=== PATIENT | male | born 1950 | race African-American/Black ===

== ENCOUNTER → 2016-08-07 | Outpatient (CLI) | payer OTHER ==
[~2016-08-07] VITALS: Ht 177.8 cm; Wt 86.2 kg
[~2016-08-07] MED LIST: ATARAX,VISTARIL50 MG PO; CICLOPIROX30 GM TP; DROXIA400 MG PO; GLUCOPHAGE1000 MG PO; GLUCOTROL10 MG PO; HYDROCHLOROTHIA25 MG PO; KERYDIN10 ML TP; LANTUS 3 M100 UNITS1 SC; LATANOPROST2.5 ML BOTH EYES; LISINOPRIL40 MG PO; TRADJENTA5 MG PO; TRILIPIX135 MG PO; TRULICITY1.5 MG/0.5 SC
[2016-08-07 08:49] LABS: POINT-OF-CARE METER ID UU13113694
[2016-08-07 09:29] LABS: POINT-OF-CARE METER ID UU13113819
[2016-08-07 09:33] LABS: ANION GAP 8 MEQ/L (2-14); CHLORIDE 104 MEQ/L (99-109); POTASSIUM 4.5 MEQ/L (3.7-5.4); SAMPLE HEMOLYSIS CHECK 0; SAMPLE ICTERIC CHECK 0; SAMPLE LIPEMIA CHECK 0; SODIUM 138 MEQ/L (136-147)
[2016-08-07 09:38] LABS: GFR ESTIMATE (CALCULATED) > 59 mL/min/; GLUCOSE 167 mg/dL (70-99); UREA NITROGEN (BUN) 24 mg/dL (9-23)
== END | disposition home or self-care (01) ==
LOC: AMB 07:59
PROVIDERS: Internal Medicine
PROC: 0DJ08ZZ Inspection of Upper Intestinal Tract, Via Natural or Artificial Opening Endoscopic (ICD-10-PCS; principal; 2016-08-07)
DX: R22.1 Localized swelling, mass and lump, neck (principal); R10.9 Unspecified abdominal pain; I10 Essential (primary) hypertension; E11.9 Type 2 diabetes mellitus without complications; E78.5 Hyperlipidemia, unspecified; H54.8 Legal blindness, as defined in USA
CPT/HCPCS: 80048; 82948; B4087; J2250; J3010

== ENCOUNTER 2016-09-27 11:00 | Observation (INO) | payer OTHER ==
[~2016-09-27] VITALS: Ht 177.8 cm; Wt 86.0 kg
[2016-09-27 11:26] LABS: HEMATOCRIT 39.6 % (38.0-50.0); MCH 31.3 PG (29.0-34.0); MCHC 31.8 G/DL (30.0-36.0); MCV 98.5 FL (86-99); MEAN PLAT.VOLUME 10.3 uM^3 (9.0-12.4); PLATELET COUNT 352 K/uL (156-360); RBC DIS.WIDTH-CV 19.2 % (11.8-14.6); RBC DIS.WIDTH-SD 69.3 % (39-53); RED BLOOD COUNT 4.02 M/uL (4.00-5.50); WHITE BLOOD COUNT 11.2 K/uL (4.1-10.2)
[2016-09-27 11:58] LABS: ANION GAP 7 MEQ/L (2-14); CHLORIDE 103 MEQ/L (99-109); GFR ESTIMATE (CALCULATED) 56 mL/min/; GLUCOSE 187 mg/dL (70-99); POTASSIUM 4.1 MEQ/L (3.7-5.4); SAMPLE HEMOLYSIS CHECK 0; SAMPLE ICTERIC CHECK 0; SAMPLE LIPEMIA CHECK 0; SODIUM 138 MEQ/L (136-147); UREA NITROGEN (BUN) 20 mg/dL (9-23)
[2016-09-27 11:59] LABS: TROP-I INTERPRETATION NEGATIVE; TROPONIN-I < 0.01 ng/mL (0.0-0.30)
[2016-09-27] MEDS ORDERED: HYDREA500 MG PO (13:58)
[2016-09-27] MEDS ORDERED: PRINIVIL5 MG PO (13:59)
[2016-09-27] MEDS ORDERED: LOFIBRA,TRIGLI160 MG PO (13:59)
[2016-09-27] MEDS ORDERED: LUMIGAN 0.50 DROP/22 BOTH EYES (14:02)
[2016-09-27] MEDS ORDERED: COSOPT EYE DROPS5 ML BOTH EYES (14:03)
[2016-09-27] MEDS ORDERED: ALPHAGAN 0100 DROP/5 BOTH EYES (14:03)
[2016-09-27] MEDS ORDERED: ISOPTO CARPINE15 M2 RIGHT EYE (14:04)
[2016-09-27] MEDS ORDERED: PRED FORTE100 DROP/5 LEFT EYE (14:04)
[2016-09-27 15:10] VITALS: BP 149/81
[2016-09-27 17:08] LABS: POINT-OF-CARE METER ID UU13113700
[2016-09-27 17:48] VITALS: BP 117/68
[2016-09-27 17:55] VITALS: BP 114/61
[2016-09-27 18:00] LABS: TROP-I INTERPRETATION NEGATIVE; TROPONIN-I < 0.01 ng/mL (0.0-0.30)
[2016-09-27 20:00] VITALS: BP 102/52
[2016-09-27 21:35] LABS: POINT-OF-CARE METER ID UU13113700
[2016-09-27 23:37] LABS: TROP-I INTERPRETATION NEGATIVE; TROPONIN-I < 0.01 ng/mL (0.0-0.30)
[2016-09-27 23:54] LABS: POINT-OF-CARE METER ID UU13113700
[2016-09-28 00:02] VITALS: BP 108/55
[2016-09-28 04:03] VITALS: BP 105/52
[2016-09-28 06:02] LABS: HEMATOCRIT 37.7 % (38.0-50.0); MCH 30.6 PG (29.0-34.0); MCHC 31.3 G/DL (30.0-36.0); MCV 97.9 FL (86-99); MEAN PLAT.VOLUME 11.1 uM^3 (9.0-12.4); NRBC (%) 0.8 /100 WBC (0-0); PLATELET COUNT 365 K/uL (156-360); RBC DIS.WIDTH-CV 19.5 % (11.8-14.6); RED BLOOD COUNT 3.85 M/uL (4.00-5.50); WHITE BLOOD COUNT 9.1 K/uL (4.1-10.2)
[2016-09-28 06:23] LABS: ANION GAP 6 MEQ/L (2-14); CHLORIDE 105 MEQ/L (99-109); GFR ESTIMATE (CALCULATED) > 59 mL/min/; GLUCOSE 150 mg/dL (70-99); SAMPLE HEMOLYSIS CHECK 0; SAMPLE ICTERIC CHECK 0; SAMPLE LIPEMIA CHECK 0; SODIUM 138 MEQ/L (136-147); UREA NITROGEN (BUN) 15 mg/dL (9-23)
[2016-09-28 06:49] LABS: INTER. NORMALIZED RATIO 1.2; PROTHROMBIN TIME 12.3 (9.2-11.2)
[2016-09-28 07:33] VITALS: BP 117/67
[2016-09-28 07:36] LABS: Estimated Average Glucose 166 mg/dL (70-123); HEMOGLOBIN A1c (GLYCOHEMOGLOB) 7.4 % HGB (Below 5.7)
[2016-09-28] MEDS ORDERED: ATORVASTATIN CA40 MG PO (11:26)
[2016-09-28] MEDS ORDERED: ASPIR-LOW81 MG PO (11:26)
[2016-09-28 15:04] LABS: HDL CHOLESTEROL 22 MG/DL (Desirable>=40); LDL CHOLESTEROL 25 mg/dL (Desirable<100); NON-HDL CHOLESTEROL 64 mg/dL (Desirable<160); TOTAL CHOLESTEROL 86 mg/dL (Desirable<200); TRIGLYCERIDES 196 MG/DL (Normal: <150)
== END 2016-09-28 13:18 | disposition home or self-care (01) ==
LOC: EME 11:00 → EDOF 13:24 → 5WEST 13:24 → EDOF 13:54 → 5WEST 15:16
PROVIDERS: Physician Assistant; Student in an Organized Health Care Education/Training Program
DX: R07.89 Other chest pain (principal); R94.31 Abnormal electrocardiogram [ECG] [EKG]; N17.9 Acute kidney failure, unspecified; D72.829 Elevated white blood cell count, unspecified; I10 Essential (primary) hypertension; E11.9 Type 2 diabetes mellitus without complications; Z79.4 Long term (current) use of insulin; E78.5 Hyperlipidemia, unspecified; Z85.46 Personal history of malignant neoplasm of prostate; E55.9 Vitamin D deficiency, unspecified; H40.9 Unspecified glaucoma; Z87.891 Personal history of nicotine dependence
CPT/HCPCS: 71020; 80048; 80061; 82948; 83036; 84484; 85027; 85610; 93005; 99281; 99285; G0378; J1644; J1815; J2270; J7030

== ENCOUNTER 2016-09-30 00:03 | Emergency (ER) | payer OTHER ==
[~2016-09-30] VITALS: Ht 175.3 cm; Wt 86.0 kg
[~2016-09-30 00:03] MED LIST changes: +ALPHAGAN 0100 DROP/5 BOTH EYES; +ASPIR-LOW81 MG PO; +ATORVASTATIN CA40 MG PO; +COSOPT EYE DROPS5 ML BOTH EYES; +HYDREA500 MG PO; +ISOPTO CARPINE15 M2 RIGHT EYE; +LOFIBRA,TRIGLI160 MG PO; +LUMIGAN 0.50 DROP/22 BOTH EYES; +PRED FORTE100 DROP/5 LEFT EYE; +PRINIVIL5 MG PO
[2016-09-30] MEDS ORDERED: ULTRAM50 MG PO (01:03)
[2016-09-30 01:31] VITALS: BP 128/82
[2016-10-01] MEDS ORDERED: PERCOCET 5/31 TABLET PO (21:28)
== END 2016-09-30 01:33 | disposition home or self-care (01) ==
LOC: EME 00:03 → RME 00:03
PROC: 2W3HX1Z Immobilization of Left Thumb using Splint (ICD-10-PCS; principal; 2016-09-30)
DX: S60.012A Contusion of left thumb without damage to nail, initial encounter (principal); W23.0XXA Caught, crushed, jammed, or pinched between moving objects, initial encounter; Y92.810 Car as the place of occurrence of the external cause
CPT/HCPCS: 73130; 99281; 99283

== ENCOUNTER 2016-10-01 19:30 | Emergency (ER) | payer OTHER ==
[~2016-10-01] VITALS: Ht 177.8 cm; Wt 86.5 kg
[~2016-10-01 19:30] MED LIST changes: +ULTRAM50 MG PO
[2016-10-01] MEDS ORDERED: PERCOCET 5/31 TABLET PO (21:28)
[2016-10-01 21:43] VITALS: BP 123/66
== END 2016-10-01 21:43 | disposition home or self-care (01) ==
LOC: EME 19:30
PROC: 0HCQXZZ Extirpation of Matter from Finger Nail, External Approach (ICD-10-PCS; principal; 2016-10-01)
DX: S60.112D Contusion of left thumb with damage to nail, subsequent encounter (principal); W23.0XXD Caught, crushed, jammed, or pinched between moving objects, subsequent encounter; Z87.891 Personal history of nicotine dependence; Z79.4 Long term (current) use of insulin
CPT/HCPCS: 99281; 99283

== ENCOUNTER 2016-10-16 16:17 | Emergency (ER) | payer OTHER ==
[~2016-10-16] VITALS: Ht 177.8 cm; Wt 85.0 kg
[~2016-10-16 16:17] MED LIST changes: +PERCOCET 5/31 TABLET PO
[2016-10-16 16:55] LABS: HEMATOCRIT 38.2 % (38.0-50.0); MCH 31.3 PG (29.0-34.0); MCHC 31.4 G/DL (30.0-36.0); MCV 99.5 FL (86-99); MEAN PLAT.VOLUME 11.2 uM^3 (9.0-12.4); NRBC (%) 1.9 /100 WBC (0-0); PLATELET COUNT 418 K/uL (156-360); RBC DIS.WIDTH-CV 20.1 % (11.8-14.6); RBC DIS.WIDTH-SD 72.6 % (39-53); RED BLOOD COUNT 3.84 M/uL (4.00-5.50); WHITE BLOOD COUNT 15.8 K/uL (4.1-10.2)
[2016-10-16 17:03] LABS: CHLORIDE 106 mEq/L (99-109); POTASSIUM 4.5 mEq/L (3.7-5.4); SODIUM 139 mEq/L (136-147)
[2016-10-16 17:05] LABS: GLUCOSE 152 mg/dL (70-99)
[2016-10-16 17:06] LABS: ANION GAP 8 MEQ/L (2-14)
[2016-10-16 17:09] LABS: GFR ESTIMATE (CALCULATED) > 59 mL/min/
[2016-10-16 17:10] LABS: UREA NITROGEN (BUN) 13 mg/dL (9-23)
[2016-10-16 17:17] LABS: TROP-I INTERPRETATION NEGATIVE; TROPONIN-I < 0.01 ng/mL (0.0-0.30)
[2016-10-16 19:55] LABS: TROP-I INTERPRETATION NEGATIVE; TROPONIN-I < 0.01 ng/mL (0.0-0.30)
[2016-10-16 20:42] VITALS: BP 151/88
[2016-10-20] MEDS ORDERED: ASPIR 8181 M1 PO (15:27)
[2016-10-20] MEDS ORDERED: JANUMET 50/51 TABLET PO (15:28)
== END 2016-10-16 20:43 | disposition home or self-care (01) ==
LOC: EME 16:17
PROVIDERS: Emergency Medicine
DX: R07.9 Chest pain, unspecified (principal); E11.9 Type 2 diabetes mellitus without complications; E78.5 Hyperlipidemia, unspecified; I10 Essential (primary) hypertension; Z85.46 Personal history of malignant neoplasm of prostate; Z79.4 Long term (current) use of insulin; Z87.891 Personal history of nicotine dependence
CPT/HCPCS: 71020; 80048; 84484; 85027; 85379; 93005; 99281; 99284

== ENCOUNTER 2016-10-22 08:14 | Day surgery (SDC) | payer OTHER ==
[~2016-10-22] VITALS: Ht 177.8 cm; Wt 86.2 kg
[~2016-10-22 08:14] MED LIST changes: +ASPIR 8181 M1 PO; +JANUMET 50/51 TABLET PO
[2016-10-22 08:41] LABS: POINT-OF-CARE METER ID UU14174212
== END 2016-10-22 10:09 | disposition home or self-care (01) ==
LOC: PAIN 08:14 → SDC 08:30 → PAIN 10:09
PROVIDERS: Anesthesiology Pain Medicine
PROC: 3E0R33Z Introduction of Anti-inflammatory into Spinal Canal, Percutaneous Approach (ICD-10-PCS; principal; 2016-10-22)
PROC: 3E0R3BZ Introduction of Anesthetic Agent into Spinal Canal, Percutaneous Approach (ICD-10-PCS; 2016-10-22)
DX: M47.26 Other spondylosis with radiculopathy, lumbar region (principal); I12.9 Hypertensive chronic kidney disease with stage 1 through stage 4 chronic kidney disease, or unspecified chronic kidney disease; N18.3 Chronic kidney disease, stage 3 (moderate); E11.9 Type 2 diabetes mellitus without complications; E78.00 Pure hypercholesterolemia, unspecified; M54.2 Cervicalgia; D43.2 Neoplasm of uncertain behavior of brain, unspecified; Z85.46 Personal history of malignant neoplasm of prostate; Z79.4 Long term (current) use of insulin; Z79.891 Long term (current) use of opiate analgesic; Z87.891 Personal history of nicotine dependence
CPT/HCPCS: 82948; J1030; J2250; J3010; S0020

== ENCOUNTER 2016-10-29 07:40 | Day surgery (SDC) | payer OTHER ==
[2016-10-29 08:08] LABS: POINT-OF-CARE METER ID UU14174212
== END 2016-10-29 09:20 | disposition home or self-care (01) ==
LOC: PAIN 07:40 → SDC 08:00 → PAIN 08:00
PROVIDERS: Anesthesiology Pain Medicine
DX: M51.16 Intervertebral disc disorders with radiculopathy, lumbar region (principal); I12.9 Hypertensive chronic kidney disease with stage 1 through stage 4 chronic kidney disease, or unspecified chronic kidney disease; N18.3 Chronic kidney disease, stage 3 (moderate); E11.22 Type 2 diabetes mellitus with diabetic chronic kidney disease; K21.9 Gastro-esophageal reflux disease without esophagitis; Z79.4 Long term (current) use of insulin; Z79.82 Long term (current) use of aspirin; Z79.899 Other long term (current) drug therapy; Z87.891 Personal history of nicotine dependence; E78.00 Pure hypercholesterolemia, unspecified
CPT/HCPCS: 82948; J1030; J2250; J3010; S0020

== ENCOUNTER 2016-12-05 19:37 | Inpatient (IN) | payer OTHER ==
[~2016-12-05] VITALS: Ht 177.8 cm; Wt 86.8 kg
[2016-12-05 20:27] LABS: HEMATOCRIT 35.4 % (38.0-50.0); MCH 30.6 PG (29.0-34.0); MCHC 31.4 G/DL (30.0-36.0); MCV 97.5 FL (86-99); NRBC (%) 1.5 /100 WBC (0-0); RBC DIS.WIDTH-CV 20.1 % (11.8-14.6); RED BLOOD COUNT 3.63 M/uL (4.00-5.50); WHITE BLOOD COUNT 5.8 K/uL (4.1-10.2)
[2016-12-05 20:30] LABS: ADD MIUA? YES; BILIRUBIN SMALL; BLOOD SMALL; COLOR AMBER ((YELLOW)); GLUCOSE (STRIP) >=500; KETONES NEGATIVE; LEUKOCYTES NEGATIVE; NITRITE NEGATIVE; PROTEIN (STRIP) 30; SPECIFIC GRAVITY 1.016 (1.000-1.030)
[2016-12-05 20:35] LABS: BACTERIA RARE /HPF; EPITHELIAL CELLS RARE /HPF; MUCUS TRACE /LPF; RED BLOOD CELLS 0-5 /HPF (0-5); WHITE BLOOD CELLS 0-5 /HPF (0-5)
[2016-12-05 20:36] LABS: CHLORIDE 102 mEq/L (99-109); POTASSIUM 4.2 mEq/L (3.7-5.4); SODIUM 135 mEq/L (136-147)
[2016-12-05 20:39] LABS: GLUCOSE 209 mg/dL (70-99)
[2016-12-05 20:40] LABS: ANION GAP 10 MEQ/L (2-14); TOTAL BILIRUBIN 5.1 mg/dL (0.0-1.0)
[2016-12-05 20:42] LABS: ALKALINE PHOSPHATASE 461 IU/L (3-129); GFR ESTIMATE (CALCULATED) > 59 mL/min/
[2016-12-05 20:43] LABS: UREA NITROGEN (BUN) 21 mg/dL (9-23)
[2016-12-05 20:46] LABS: CREATINE KINASE 19 IU/L (1-294); LIPASE 28 U/L (1.0-51.0)
[2016-12-05 20:48] LABS: TROP-I INTERPRETATION NEGATIVE; TROPONIN-I < 0.01 ng/mL (0.0-0.30)
[2016-12-05] MEDS ORDERED: FISH OIL 1,0001 EA10 PO (21:31)
[2016-12-05] MEDS ORDERED: IBUPROFEN800 MG PO (21:35)
[2016-12-05 21:37] LABS: ABS NEUTROPHIL COUNT 4.9; ANISOCYTOSIS 3+; BAND NEUTROPHILS 13.9 % (0-8.0); EOSINOPHIL ABS CT 0; HEMATOLOGY COMMENT 1 SN; HYPOCHROMASIA 2+; INSTRUMENT ABS NEUTROPHIL CT 3.9 K/uL; LYMPHOCYTES 3.7 % (15.0-45.0); MACROCYTES 2+; METAMYELOCYTES 0.9 %; MYELOCYTES 1.9 %; NUCLEATED RBC'S 2.8; OVALOCYTES 1+; PLATELET CLUMPS PRESENT - PLATELET COUNT APPEARS ADQ.; POIKILOCYTOSIS 2+; POLYCHROMASIA 1+; SCHISTOCYTES 2+; SEG.NEUTROPHILS 71.3 % (46.0-76.0); TEAR DROP CELLS 2+
[2016-12-06 06:43] LABS: TROP-I INTERPRETATION NEGATIVE; TROPONIN-I < 0.01 ng/mL (0.0-0.30)
[2016-12-06 09:45] LABS: CA-125 11 U/ML (LESS THAN 35)
[2016-12-06 09:46] LABS: POINT-OF-CARE METER ID UU13113702
[2016-12-06 09:48] LABS: PSA FREE 0.03 ng/mL
[2016-12-06 12:09] LABS: TROP-I INTERPRETATION NEGATIVE; TROPONIN-I < 0.01 ng/mL (0.0-0.30)
[2016-12-06 14:33] LABS: TOTAL BILIRUBIN 5.2 mg/dL (0.0-1.0)
[2016-12-06 14:34] LABS: ALKALINE PHOSPHATASE 448 IU/L (3-129)
[2016-12-06 14:37] LABS: DIRECT BILIRUBIN 4.3 mg/dL (0.0-0.3)
[2016-12-06 19:47] VITALS: BP 138/84
[2016-12-06 23:00] VITALS: BP 125/60
[2016-12-07 03:04] LABS: CHLORIDE 101 mEq/L (99-109); POTASSIUM 4.1 mEq/L (3.7-5.4); SODIUM 132 mEq/L (136-147)
[2016-12-07 03:07] LABS: GLUCOSE 246 mg/dL (70-99)
[2016-12-07 03:08] LABS: ANION GAP 9 MEQ/L (2-14)
[2016-12-07 03:10] LABS: ALKALINE PHOSPHATASE 391 IU/L (3-129); GFR ESTIMATE (CALCULATED) 49 mL/min/
[2016-12-07 03:11] LABS: UREA NITROGEN (BUN) 22 mg/dL (9-23)
[2016-12-07 03:12] LABS: DIRECT BILIRUBIN 4.8 mg/dL (0.0-0.3)
[2016-12-07 03:49] LABS: TOTAL BILIRUBIN 6.7 mg/dL (0.0-1.0)
[2016-12-07 04:00] VITALS: BP 117/57
[2016-12-07 04:15] LABS: ABS NEUTROPHIL COUNT 6.2; ANISOCYTOSIS 2+; EOSINOPHIL ABS CT 0; HEMATOCRIT 29.1 % (38.0-50.0); INSTRUMENT ABS NEUTROPHIL CT 4.5 K/uL; LYMPHOCYTES 13.9 % (15.0-45.0); MACROCYTES 2+; MCH 31.1 PG (29.0-34.0); MCHC 32.3 G/DL (30.0-36.0); MCV 96.4 FL (86-99); NRBC (%) 1.1 /100 WBC (0-0); NUCLEATED RBC'S 0.9; OVALOCYTES 2+; PLAT.SUFFICIENCY ADEQUATE; PLATELET CLUMPS PRESENT - PLATELET COUNT APPEARS ADQ.; POIKILOCYTOSIS 1+; RBC DIS.WIDTH-CV 20.2 % (11.8-14.6); RBC DIS.WIDTH-SD 70.2 % (39-53); RED BLOOD COUNT 3.02 M/uL (4.00-5.50); SEG.NEUTROPHILS 77.8 % (46.0-76.0); TEAR DROP CELLS 1+
[2016-12-07 06:56] LABS: ADD MIUA? YES; BILIRUBIN SMALL; BLOOD NEGATIVE; COLOR AMBER ((YELLOW)); GLUCOSE (STRIP) >=500; KETONES NEGATIVE; LEUKOCYTES NEGATIVE; NITRITE NEGATIVE; PROTEIN (STRIP) 30
[2016-12-07 07:16] LABS: BACTERIA RARE /HPF; EPITHELIAL CELLS RARE /HPF; MUCUS TRACE /LPF; RED BLOOD CELLS 0-5 /HPF (0-5); UCUL ADDED? NO; WHITE BLOOD CELLS 0-5 /HPF (0-5)
[2016-12-07 09:34] VITALS: BP 130/61
[2016-12-07 11:24] LABS: HBSG INDEX 0.16
[2016-12-07 11:25] LABS: ANTI-HEPATITIS A VIRUS (IGM) Nonreactive; HAV INDEX 0.17
[2016-12-07 11:26] LABS: ANTI-HEPATITIS B CORE (IGM) Nonreactive; HBC IgM INDEX 0.06
[2016-12-07 11:41] VITALS: BP 130/65
[2016-12-07 16:09] VITALS: BP 143/65
[2016-12-07 19:20] VITALS: BP 135/63
[2016-12-07 23:47] VITALS: BP 134/67
[2016-12-08 03:46] VITALS: BP 133/60
[2016-12-08 05:43] LABS: INTER. NORMALIZED RATIO 1.4; PROTHROMBIN TIME 14.2 (9.2-11.2); PTT 36.4 (25-32)
[2016-12-08 05:59] LABS: HEMATOCRIT 29.1 % (38.0-50.0); MCH 31.2 PG (29.0-34.0); MCV 97.7 FL (86-99); MEAN PLAT.VOLUME 12.4 uM^3 (9.0-12.4); NRBC (%) 0.7 /100 WBC (0-0); RBC DIS.WIDTH-CV 20.2 % (11.8-14.6); RBC DIS.WIDTH-SD 72.6 % (39-53); RED BLOOD COUNT 2.98 M/uL (4.00-5.50); WHITE BLOOD COUNT 7.4 K/uL (4.1-10.2)
[2016-12-08 06:03] LABS: PLATELET COUNT 180 K/uL (156-360)
[2016-12-08 06:26] LABS: ALKALINE PHOSPHATASE 299 IU/L (3-129); ANION GAP 10 MEQ/L (2-14); CHLORIDE 105 MEQ/L (99-109); GFR ESTIMATE (CALCULATED) > 59 mL/min/; GLUCOSE 191 mg/dL (70-99); SAMPLE HEMOLYSIS CHECK 0; SAMPLE ICTERIC CHECK 2; SAMPLE LIPEMIA CHECK 0; SODIUM 138 MEQ/L (136-147); TOTAL BILIRUBIN 7.3 MG/DL (0.0-1.0); UREA NITROGEN (BUN) 14 mg/dL (9-23)
[2016-12-08 08:11] VITALS: BP 153/69
[2016-12-08 09:46] LABS: C-REACTIVE PROTEIN 196.1 MG/L (0-10); CREATINE KINASE 69 IU/L (1-294)
[2016-12-08 10:32] LABS: ANISOCYTOSIS 2+; MACROCYTES 2+; PLAT.SUFFICIENCY ADEQUATE; POIKILOCYTOSIS 1+; TARGET CELLS 1+; TEAR DROP CELLS 2+
[2016-12-08 10:33] LABS: ABS NEUTROPHIL COUNT 5.5; BAND NEUTROPHILS 9.6 % (0-8.0); EOSINOPHIL ABS CT 0.1; EOSINOPHILS 1.8 % (0-5.0); INSTRUMENT ABS NEUTROPHIL CT 4.6 K/uL; LYMPHOCYTES 4.4 % (15.0-45.0); METAMYELOCYTES 2.6 %; MYELOCYTES 2.6 %; SEG.NEUTROPHILS 64.1 % (46.0-76.0)
[2016-12-08 11:06] LABS: ERTH.SED.RATE 91 MM/HR (0-20)
[2016-12-08 11:14] VITALS: BP 138/76
[2016-12-08 12:01] LABS: GLUCOSE 315 mg/dL (70-99)
[2016-12-08 14:16] VITALS: BP 121/56
[2016-12-08 16:57] VITALS: BP 117/69
[2016-12-08 21:10] VITALS: BP 128/64
[2016-12-09 03:46] VITALS: BP 130/54
[2016-12-09 07:19] LABS: ALKALINE PHOSPHATASE 280 IU/L (3-129); ANION GAP 12 MEQ/L (2-14); CHLORIDE 105 MEQ/L (99-109); GFR ESTIMATE (CALCULATED) > 59 mL/min/; GLUCOSE 180 mg/dL (70-99); POTASSIUM 4.1 MEQ/L (3.7-5.4); SAMPLE HEMOLYSIS CHECK 0; SAMPLE ICTERIC CHECK 1; SAMPLE LIPEMIA CHECK 0; SODIUM 138 MEQ/L (136-147); TOTAL BILIRUBIN 6.2 MG/DL (0.0-1.0)
[2016-12-09 07:24] LABS: HEMATOCRIT 25.6 % (38.0-50.0); MCH 30.8 PG (29.0-34.0); MCHC 31.6 G/DL (30.0-36.0); MCV 97.3 FL (86-99); MEAN PLAT.VOLUME 12.1 uM^3 (9.0-12.4); NRBC (%) 0.6 /100 WBC (0-0); PLATELET COUNT 161 K/uL (156-360); RBC DIS.WIDTH-CV 20.9 % (11.8-14.6); RBC DIS.WIDTH-SD 73.5 % (39-53); RED BLOOD COUNT 2.63 M/uL (4.00-5.50); WHITE BLOOD COUNT 10.1 K/uL (4.1-10.2)
[2016-12-09 07:25] LABS: UREA NITROGEN (BUN) 24 mg/dL (9-23)
[2016-12-09 07:29] LABS: ABS NEUTROPHIL COUNT 7.2; ANISOCYTOSIS 2+; ATYPICAL LYMPHOCYTE 0.9 %; BAND NEUTROPHILS 5.3 % (0-8.0); BASOPHILS 1.8 %; EOSINOPHIL ABS CT 0.1; EOSINOPHILS 0.9 % (0-5.0); HYPOCHROMASIA 1+; INSTRUMENT ABS NEUTROPHIL CT 6.3 K/uL; LYMPHOCYTES 7.1 % (15.0-45.0); MACROCYTES 2+; METAMYELOCYTES 1.8 %; MYELOCYTES 2.6 %; PLAT.SUFFICIENCY ADEQUATE; POIKILOCYTOSIS 1+; SEG.NEUTROPHILS 65.5 % (46.0-76.0); TEAR DROP CELLS 1+
[2016-12-09 08:00] VITALS: BP 148/62
[2016-12-09 08:27] LABS: IMM.RETIC FRACTION 12.4 % (3-19); RETIC HGB EQUIVALENT 31.3 (28-36); RETICULOCYTE COUNT 0.6 % (0.5-1.8)
[2016-12-09 08:52] LABS: FERRITIN 1310 NG/ML (22-322); IRON 53 MCG/DL (35-150); LACTATE DEHYDROGENASE 897 IU/L (20-246)
[2016-12-09 13:17] LABS: POINT-OF-CARE METER ID UU13113781
[2016-12-09 17:22] VITALS: BP 142/64
[2016-12-09 19:10] VITALS: BP 170/92
[2016-12-09 21:46] LABS: QGTB-NIL 0.02 IU/mL (()); TB AG-NIL 0.06 IU/mL (())
[2016-12-10 04:59] VITALS: BP 126/56
[2016-12-10 05:46] LABS: HEMATOCRIT 25.8 % (38.0-50.0); MCH 30.5 PG (29.0-34.0); MCV 98.5 FL (86-99); MEAN PLAT.VOLUME 13.2 uM^3 (9.0-12.4); NRBC (%) 0.4 /100 WBC (0-0); PLATELET COUNT 162 K/uL (156-360); RBC DIS.WIDTH-CV 21.2 % (11.8-14.6); RBC DIS.WIDTH-SD 75.7 % (39-53); RED BLOOD COUNT 2.62 M/uL (4.00-5.50); WHITE BLOOD COUNT 12.4 K/uL (4.1-10.2)
[2016-12-10 06:12] LABS: ALKALINE PHOSPHATASE 247 IU/L (3-129); ANION GAP 11 MEQ/L (2-14); CHLORIDE 105 MEQ/L (99-109); GFR ESTIMATE (CALCULATED) > 59 mL/min/; GLUCOSE 204 mg/dL (70-99); POTASSIUM 4.5 MEQ/L (3.7-5.4); SAMPLE HEMOLYSIS CHECK 0; SAMPLE ICTERIC CHECK 1; SAMPLE LIPEMIA CHECK 0; SODIUM 137 MEQ/L (136-147); TOTAL BILIRUBIN 6.2 MG/DL (0.0-1.0); UREA NITROGEN (BUN) 33 mg/dL (9-23)
[2016-12-10 08:00] VITALS: BP 160/82
[2016-12-10 08:00] LABS: ABS NEUTROPHIL COUNT 9.7; ANISOCYTOSIS 2+; ATYPICAL LYMPHOCYTE 3.6 %; BAND NEUTROPHILS 5.3 % (0-8.0); EOSINOPHIL ABS CT 0; HYPOCHROMASIA 1+; INSTRUMENT ABS NEUTROPHIL CT 7.6 K/uL; LYMPHOCYTES 2.7 % (15.0-45.0); MACROCYTES 2+; METAMYELOCYTES 3.6 %; MICROCYTOSIS 1+; MYELOCYTES 0.9 %; NUCLEATED RBC'S 2.7; OVALOCYTES 1+; PLAT.SUFFICIENCY ADEQUATE; POIKILOCYTOSIS 1+; SEG.NEUTROPHILS 73.2 % (46.0-76.0); TARGET CELLS 1+; TEAR DROP CELLS 1+
[2016-12-10 12:22] VITALS: BP 137/68
[2016-12-10 15:20] VITALS: BP 129/60
[2016-12-10 16:18] LABS: POINT-OF-CARE METER ID UU13113698
[2016-12-10 20:30] VITALS: BP 127/64
[2016-12-11 00:46] VITALS: BP 136/69
[2016-12-11 05:07] VITALS: BP 151/75
[2016-12-11 06:01] LABS: HEMATOCRIT 26.5 % (38.0-50.0); MCH 31.3 PG (29.0-34.0); MCHC 30.9 G/DL (30.0-36.0); MCV 101.1 FL (86-99); MEAN PLAT.VOLUME 12.3 uM^3 (9.0-12.4); NRBC (%) 0.7 /100 WBC (0-0); PLATELET COUNT 137 K/uL (156-360); RBC DIS.WIDTH-CV 21.9 % (11.8-14.6); RBC DIS.WIDTH-SD 80.4 % (39-53); RED BLOOD COUNT 2.62 M/uL (4.00-5.50); WHITE BLOOD COUNT 13.4 K/uL (4.1-10.2)
[2016-12-11 06:57] LABS: ABS NEUTROPHIL COUNT 11.6; ANISOCYTOSIS 3+; BAND NEUTROPHILS 3.5 % (0-8.0); EOSINOPHIL ABS CT 0; INSTRUMENT ABS NEUTROPHIL CT 8.8 K/uL; LYMPHOCYTES 3.6 % (15.0-45.0); MACROCYTES 2+; METAMYELOCYTES 3.5 %; MICROCYTOSIS 1+; MYELOCYTES 0.9 %; NUCLEATED RBC'S 0.9; OVALOCYTES 1+; PLAT.SUFFICIENCY DECREASED; POIKILOCYTOSIS 1+; SEG.NEUTROPHILS 83.2 % (46.0-76.0); SPHEROCYTES 1+; TEAR DROP CELLS 1+
[2016-12-11 07:07] VITALS: BP 132/62
[2016-12-11 07:12] LABS: ALKALINE PHOSPHATASE 269 IU/L (3-129); ANION GAP 12 MEQ/L (2-14); CHLORIDE 105 MEQ/L (99-109); GFR ESTIMATE (CALCULATED) 44 mL/min/; GLUCOSE 245 mg/dL (70-99); MAGNESIUM 2.2 mg/dl (1.3-2.7); SAMPLE HEMOLYSIS CHECK 0; SAMPLE ICTERIC CHECK 1; SAMPLE LIPEMIA CHECK 0; SODIUM 136 MEQ/L (136-147); TOTAL BILIRUBIN 5.4 MG/DL (0.0-1.0); UREA NITROGEN (BUN) 47 mg/dL (9-23)
[2016-12-11 08:11] LABS: POINT-OF-CARE USER ID NUTSLF44
[2016-12-11 11:41] LABS: POINT-OF-CARE USER ID NUTSLF44
[2016-12-11 15:24] VITALS: BP 137/68
[2016-12-11 16:33] LABS: POINT-OF-CARE METER ID UU13113781; POINT-OF-CARE USER ID NUTSLF44
[2016-12-11 19:10] VITALS: BP 135/64
[2016-12-11 21:24] LABS: POINT-OF-CARE METER ID UU14174216; POINT-OF-CARE USER ID ENVMNS
[2016-12-11 23:14] VITALS: BP 143/71
[2016-12-12 03:03] VITALS: BP 177/78
[2016-12-12 06:47] LABS: HEMATOCRIT 25.2 % (38.0-50.0); MCH 31.5 PG (29.0-34.0); MCHC 31.3 G/DL (30.0-36.0); MCV 100.4 FL (86-99); NRBC (%) 0.4 /100 WBC (0-0); RBC DIS.WIDTH-CV 21.8 % (11.8-14.6); RBC DIS.WIDTH-SD 79.7 % (39-53); RED BLOOD COUNT 2.51 M/uL (4.00-5.50); WHITE BLOOD COUNT 13.8 K/uL (4.1-10.2)
[2016-12-12 06:54] LABS: ALKALINE PHOSPHATASE 229 IU/L (3-129); ANION GAP 11 MEQ/L (2-14); CHLORIDE 111 MEQ/L (99-109); GFR ESTIMATE (CALCULATED) 53 mL/min/; GLUCOSE 220 mg/dL (70-99); POTASSIUM 4.9 MEQ/L (3.7-5.4); SAMPLE HEMOLYSIS CHECK 0; SAMPLE ICTERIC CHECK 1; SAMPLE LIPEMIA CHECK 0; TOTAL BILIRUBIN 5.8 MG/DL (0.0-1.0); UREA NITROGEN (BUN) 40 mg/dL (9-23)
[2016-12-12 06:57] LABS: SODIUM 144 MEQ/L (136-147)
[2016-12-12 07:50] VITALS: BP 157/78
[2016-12-12 08:18] LABS: EOSINOPHIL ABS CT 0; HYPOCHROMASIA 1+; INSTRUMENT ABS NEUTROPHIL CT 9.4 K/uL; MACROCYTES 1+; MICROCYTOSIS 1+; OVALOCYTES 1+; PLATELET COUNT 118 K/uL (156-360)
[2016-12-12 12:25] VITALS: BP 155/73
[2016-12-12 16:45] LABS: POINT-OF-CARE METER ID UU13113698
[2016-12-12 19:00] VITALS: BP 126/65
[2016-12-12 21:03] LABS: POINT-OF-CARE METER ID UU13113698
[2016-12-13 03:59] VITALS: BP 153/81
[2016-12-13 06:06] LABS: MCH 30.4 PG (29.0-34.0); MCHC 30.4 G/DL (30.0-36.0); NRBC (%) 0.2 /100 WBC (0-0); RBC DIS.WIDTH-CV 21.7 % (11.8-14.6); RBC DIS.WIDTH-SD 79.3 % (39-53); WHITE BLOOD COUNT 12.1 K/uL (4.1-10.2)
[2016-12-13 06:25] LABS: ALKALINE PHOSPHATASE 183 IU/L (3-129); ANION GAP 12 MEQ/L (2-14); CHLORIDE 117 MEQ/L (99-109); GFR ESTIMATE (CALCULATED) > 59 mL/min/; GLUCOSE 318 mg/dL (70-99); POTASSIUM 4.8 MEQ/L (3.7-5.4); SAMPLE HEMOLYSIS CHECK 0; SAMPLE ICTERIC CHECK 1; SAMPLE LIPEMIA CHECK 0; TOTAL BILIRUBIN 5.1 MG/DL (0.0-1.0); UREA NITROGEN (BUN) 40 mg/dL (9-23)
[2016-12-13 06:27] LABS: ABS NEUTROPHIL COUNT 10.7; ANISOCYTOSIS 2+; BASOPHILS 2.7 %; EOSINOPHIL ABS CT 0; INSTRUMENT ABS NEUTROPHIL CT 7.8 K/uL; LYMPHOCYTES 5.4 % (15.0-45.0); MACROCYTES 1+; MICROCYTOSIS 1+; MYELOCYTES 3.6 %; OVALOCYTES 1+; PLAT.SUFFICIENCY DECREASED; POIKILOCYTOSIS 1+; SODIUM 152 MEQ/L (136-147)
[2016-12-13 07:14] VITALS: BP 147/73
[2016-12-13 07:42] LABS: POINT-OF-CARE METER ID UU13113781
[2016-12-13 08:40] LABS: PLATELET COUNT 79 K/uL (156-360); SEG.NEUTROPHILS 88.3 % (46.0-76.0)
[2016-12-13 11:22] LABS: POINT-OF-CARE METER ID UU13113781
[2016-12-13 11:30] VITALS: BP 132/62
[2016-12-13 14:56] VITALS: BP 137/64
[2016-12-13 16:01] LABS: POINT-OF-CARE METER ID UU13113781
[2016-12-13 19:00] VITALS: BP 163/74
[2016-12-13 21:46] LABS: POINT-OF-CARE METER ID UU13113781
[2016-12-13 23:57] VITALS: BP 153/73
[2016-12-14 06:09] LABS: HEMATOCRIT 26.9 % (38.0-50.0); MCH 31.7 PG (29.0-34.0); MCHC 31.6 G/DL (30.0-36.0); MCV 100.4 FL (86-99); NRBC (%) 0.5 /100 WBC (0-0); PLATELET COUNT 67 K/uL (156-360); RBC DIS.WIDTH-CV 21.9 % (11.8-14.6); RBC DIS.WIDTH-SD 80.1 % (39-53); RED BLOOD COUNT 2.68 M/uL (4.00-5.50); WHITE BLOOD COUNT 15.4 K/uL (4.1-10.2)
[2016-12-14 06:18] LABS: ALKALINE PHOSPHATASE 185 IU/L (3-129); ANION GAP 7 MEQ/L (2-14); CHLORIDE 120 MEQ/L (99-109); GFR ESTIMATE (CALCULATED) > 59 mL/min/; GLUCOSE 319 mg/dL (70-99); POTASSIUM 4.6 MEQ/L (3.7-5.4); SAMPLE HEMOLYSIS CHECK 0; SAMPLE ICTERIC CHECK 1; SAMPLE LIPEMIA CHECK 0; SODIUM 157 MEQ/L (136-147); TOTAL BILIRUBIN 3.9 MG/DL (0.0-1.0); UREA NITROGEN (BUN) 38 mg/dL (9-23)
[2016-12-14 06:46] LABS: ABS NEUTROPHIL COUNT 13.5; ANISOCYTOSIS 2+; EOSINOPHIL ABS CT 0; HYPOCHROMASIA 3+; INSTRUMENT ABS NEUTROPHIL CT 10.3 K/uL; LYMPHOCYTES 1.7 % (15.0-45.0); MACROCYTES 2+; METAMYELOCYTES 4.4 %; MYELOCYTES 3.5 %; NUCLEATED RBC'S 0.9; PLAT.SUFFICIENCY DECREASED; SEG.NEUTROPHILS 84.2 % (46.0-76.0)
[2016-12-14 06:50] LABS: BAND NEUTROPHILS 3.5 % (0-8.0)
[2016-12-14 06:54] LABS: POINT-OF-CARE METER ID UU13113781
[2016-12-14 07:45] VITALS: BP 157/70
[2016-12-14 10:15] LABS: Flow Number of Markers 22 (()); Flow Spec Viability 97 % (()); Flow Specimen Type PERIPHERAL BLOOD (())
[2016-12-14 11:26] LABS: POINT-OF-CARE METER ID UU13113781
[2016-12-14 11:44] VITALS: BP 139/63
[2016-12-14 15:00] VITALS: BP 118/68
[2016-12-14 16:00] VITALS: BP 132/63
[2016-12-14 16:50] LABS: POINT-OF-CARE METER ID UU13113725
[2016-12-15 03:44] VITALS: BP 51/30
== END 2016-12-15 05:25 | DRG 442 ==
LOC: EME 19:37 → EDOF 12-06 01:35 → 4EAST 12-06 01:35 → 5EAST 12-14 15:39
PROVIDERS: Hospitalist; Internal Medicine; Internal Medicine Gastroenterology; Internal Medicine Hematology & Oncology; Internal Medicine Nephrology; Nurse Practitioner Family; Physician Assistant; Student in an Organized Health Care Education/Training Program
PROC: 0FB23ZX Excision of Left Lobe Liver, Percutaneous Approach, Diagnostic (ICD-10-PCS; principal; 2016-12-08)
DX: B17.9 Acute viral hepatitis, unspecified (principal); N17.9 Acute kidney failure, unspecified; C94.6 Myelodysplastic disease, not elsewhere classified; K72.90 Hepatic failure, unspecified without coma; E72.20 Disorder of urea cycle metabolism, unspecified; E11.22 Type 2 diabetes mellitus with diabetic chronic kidney disease; Z85.46 Personal history of malignant neoplasm of prostate; E78.5 Hyperlipidemia, unspecified; I12.9 Hypertensive chronic kidney disease with stage 1 through stage 4 chronic kidney disease, or unspecified chronic kidney disease; C78.7 Secondary malignant neoplasm of liver and intrahepatic bile duct; N18.3 Chronic kidney disease, stage 3 (moderate); N14.1 Nephropathy induced by other drugs, medicaments and biological substances; E87.0 Hyperosmolality and hypernatremia; D59.1 Other autoimmune hemolytic anemias; E87.2 Acidosis; R65.10 Systemic inflammatory response syndrome (SIRS) of non-infectious origin without acute organ dysfunction; Z66 Do not resuscitate; T50.8X5A Adverse effect of diagnostic agents, initial encounter; M54.10 Radiculopathy, site unspecified; H54.0 Blindness, both eyes; R76.11 Nonspecific reaction to tuberculin skin test without active tuberculosis; Z51.5 Encounter for palliative care; Z68.28 Body mass index [BMI] 28.0-28.9, adult; H40.9 Unspecified glaucoma; Z87.891 Personal history of nicotine dependence; Z90.79 Acquired absence of other genital organ(s)
CPT/HCPCS: 36415; 71020; 71250; 72157; 74177; 76770; 76937; 77012; 78306; 78582; 80048; 80053; 80074; 80076; 81003; 82140; 82272; 82378; 82550; 82565; 82607; 82728; 82746; 82948; 83010 90; 83540; 83605; 83615; 83690; 83735; 84154 GA; 84466; 84484; 84520; 84999; 85025; 85045; 85610; 85651; 85730; 86140; 86301 90; 86304; 86308; 86480 90; 86658 90; 86738 90; 86850; 86860; 86870; 86880; 87040; 87070; 87075; 87102; 87116; 87205; 87206; 88184 90; 88185 90; 88189 90; 88307; 88341 TC; 88342 TC; 93005; 94799; 99281; 99285; A9503; A9540; A9567; C1753; G0103; J1644; J1815; J2060; J2270; J2310; J2405; J2543; J2930; J3010; J3370; J7030; J7040; J7050; J7070; P9047